=== PATIENT | female | born 1930 | race Caucasian/White ===

== ENCOUNTER 2017-08-29 19:49 | Inpatient (IN) | payer MEDICARE, MEDICAID ==
[~2017-08-29] VITALS: Ht 144.8 cm; Wt 56.0 kg
[~2017-08-29 19:49] MED LIST: ASPI-611 PO; FERR325T32 PO; LISI40TA4 PO; METO-395 PO; etomidate 2mg/ml inj. ONE
[2017-08-29 20:16] LABS: ISTAT CREATININE 0.9 mg/dL (0.6-1.1); ISTAT HGB 12.9 g/dl (12.0-16.0); ISTAT IONIZED CALCIUM 1.1 mmol/L (1.03-1.32); ISTAT K 3.4 mmol/L (3.5-5.1); POC BUN/CREATININE RATIO 17.8 (6.6-38.0)
[2017-08-29 20:17] LABS: BASOPHILS # (AUTO) 0.1 X10'3 (0-0.2); BASOPHILS % (AUTO) 0.8 % (0-1); EOSINOPHILS # (AUTO) 0.3 X10'3 (0-0.9); EOSINOPHILS % (AUTO) 2.1 % (0-6); HEMATOCRIT 37.6 % (35.0-45.0); HEMOGLOBIN 12.3 g/dl (12.0-16.0); LYMPHOCYTES # (AUTO) 5.8 X10'3 (1.1-4.8); LYMPHOCYTES % (AUTO) 35.6 % (21-51); MEAN CORPUSCULAR HEMOGLOBIN 26.6 PG (27.0-31.0); MEAN CORPUSCULAR HGB CONC 32.7 % (33.0-36.5); MEAN CORPUSCULAR VOLUME 81.5 FL (78-98); MEAN PLATELET VOLUME 8.5 FL (7.4-10.4); MONOCYTES # (AUTO) 0.7 X10'3 (0-0.9); MONOCYTES % (AUTO) 4.1 % (2-12); NEUTROPHILS # (AUTO) 9.4 X10'3 (1.8-7.7); NEUTROPHILS % (AUTO) 57.4 % (42-75); PLATELET COUNT 472 X10'3 (140-440); RED BLOOD COUNT 4.62 X10'6 (4.20-5.60); RED CELL DISTRIBUTION WIDTH 24.4 % (11.5-14.5); WHITE BLOOD COUNT 16.3 X10'3 (4.5-11.0)
[2017-08-29] MEDS ORDERED: propofol 1000mg/100ml bottle 100 ML IV PRN (20:18)
[2017-08-29] MEDS ORDERED: propofol 1000mg/100ml bottle 100 ML IV ONE (20:20)
[2017-08-29] MEDS ORDERED: etomidate 2mg/ml inj. IV ONE (20:20)
[2017-08-29] MEDS ORDERED: succinylcholine 20mg/ml inj IV ONE (20:20)
[2017-08-29] MEDS ORDERED: furosemide 40mg/4ml inj IV ONE (20:30)
[2017-08-29] MEDS ORDERED: nitroGLYCERIN-Tridil 50MG/D5W 250 ML IV PRN (20:30)
[2017-08-29 20:31] LABS: ALANINE AMINOTRANSFERASE 16 U/L (12-78); ALBUMIN 2.5 G/DL (3.4-5.0); ALBUMIN/GLOBULIN RATIO 0.7 (1.1-1.5); ALKALINE PHOSPHATASE 76 IU/L (46-116); ANION GAP 12 (8-16); ASPARTATE AMINO TRANSFERASE 22 U/L (10-37); BILIRUBIN,TOTAL 0.3 MG/DL (0.1-1.0); BLOOD UREA NITROGEN 16 MG/DL (7-18); BUN/CREATININE RATIO 14.3 (6.6-38.0); CALCIUM 8.4 MG/DL (8.5-10.1); CHLORIDE 102 MMOL/L (99-107); CREATININE 1.12 MG/DL (0.40-0.90); GLUCOSE 340 MG/DL (70-104); POTASSIUM 3.5 MMOL/L (3.5-5.1); SODIUM 141 MMOL/L (135-145); TOTAL CARBON DIOXIDE 26.9 MMOL/L (24-32); TOTAL PROTEIN 6.3 G/DL (6.4-8.2); eGFR 46 ML/MIN
[2017-08-29 20:39] LABS: PHOSPHORUS 4.2 MG/DL (2.3-4.5)
[2017-08-29 20:51] LABS: ABG BASE EXCESS 4.1 mmol/L (-2.0-3.0); ABG HCO3 28.4 mmol/L (22.0-26.0); ABG OXYGEN SATURATION 88.9 % (95-98); ABG PH (T) 7.466 (7.350-7.450); ABG PO2 (T) 56.5 mmHg (83-108); FCOHb 0.5 % (0.5-1.5); FMetHb 0.1 % (0.3-1.12); FO2Hb 88.4 % (94-100); MINUTE VOLUME 6 L/min; PATIENT TEMPERATURE 36.2; PEEP 5 cm H2O; RESPIRATORY RATE 16 b/min; RESPIRATORY RATE (OBSERVED) 16 b/min; TIDAL VOLUME 350 mL; TOTAL HEMOGLOBIN 11.3 G/dl (12.0-16.0)
[2017-08-29 21:30] LABS: D-DIMER 15.57 MG/L FEU (0-0.50); PARTIAL THROMBOPLASTIN TIME 22 SECONDS (22-32); PROTHROMBIN TIME 10.7 SECONDS (9.0-12.0)
[2017-08-29] MEDS ORDERED: magnesium 2GM in 50ml NS 50 ML IV PRN (21:40)
[2017-08-29] MEDS ORDERED: acetaminophen 650mg rectal suppository RC PRN (21:40)
[2017-08-29] MEDS ORDERED: ondansetron/PF 4mg/2ml inj IV PRN (21:40)
[2017-08-29] MEDS ORDERED: potassium Cl 40MEQ/250ML bag 250 ML IV PRN (21:40)
[2017-08-29] MEDS ORDERED: magnesium 4gm in 100ml NS 100 ML IV PRN (21:40)
[2017-08-29] MEDS ORDERED: vancomycin/NS 1 GM ADD-VANTAGE 250 ML X 1 DOSE IV ONE (22:10)
[2017-08-29] MEDS ORDERED: heparin 10,000 units/1 ML INJ IV ONE (22:10)
[2017-08-29 22:35] VITALS: BP 155/86
[2017-08-29 23:00] VITALS: BP 151/76
[2017-08-29] MEDS: midazolam 100mg in NS 100ml 100 ML IV PRN (23:02)
[2017-08-29] MEDS: FENTANYL-0.9 % NACL/PF 100 ML IV PRN (23:05)
[2017-08-29 23:30] VITALS: BP 67/42
[2017-08-29] MEDS ORDERED: NORepinephrine 8mg/ 250ml NS 250 ML IV PRN (23:39)
[2017-08-29] MEDS ORDERED: NORepinephrine 8mg/ 250ml NS 250 ML IV ONE (23:41)
[2017-08-29 23:45] VITALS: BP 75/44
[2017-08-30] VITALS (23 sets, daily range): BP systolic 88–165; BP diastolic 46–84
[2017-08-30] MEDS ORDERED: insulin Lispro (HumaLOG) vial - multi-dose SQ SCH (00:30)
[2017-08-30] MEDS ORDERED: glucagon, human recombinant 1mg kit SUBCUT PRN (00:30)
[2017-08-30] MEDS ORDERED: dextrose 50%-water 50ml dispensing syringe IV PRN ×2 (00:30)
[2017-08-30] MEDS ORDERED: dextrose ORAL solution 15 GM/59 ML bottle PO PRN ×2 (00:30)
[2017-08-30] MEDS ORDERED: MESSAGE TO PHARMACY PO ONE (00:30)
[2017-08-30 03:01] LABS: ABG BASE EXCESS 7.1 mmol/L (-2.0-3.0); ABG HCO3 29.4 mmol/L (22.0-26.0); ABG OXYGEN SATURATION 96.4 % (95-98); ABG PCO2 (T) 33.3 mmHg (32.0-45.0); ABG PH (T) 7.564 (7.350-7.450); ABG PO2 (T) 79.5 mmHg (83-108); FCOHb 0.3 % (0.5-1.5); FMetHb 0.1 % (0.3-1.12); MINUTE VOLUME 6 L/min; PATIENT TEMPERATURE 36.7; PEEP 5 cm H2O; RESPIRATORY RATE 16 b/min; RESPIRATORY RATE (OBSERVED) 16 b/min; TIDAL VOLUME 350 mL; TOTAL HEMOGLOBIN 11.1 G/dl (12.0-16.0)
[2017-08-30 03:24] LABS: BASOPHILS # (AUTO) 0.1 X10'3 (0-0.2); BASOPHILS % (AUTO) 0.6 % (0-1); EOSINOPHILS # (AUTO) 0.1 X10'3 (0-0.9); EOSINOPHILS % (AUTO) 0.5 % (0-6); HEMATOCRIT 31.8 % (35.0-45.0); HEMOGLOBIN 10.5 g/dl (12.0-16.0); LYMPHOCYTES # (AUTO) 2.9 X10'3 (1.1-4.8); LYMPHOCYTES % (AUTO) 23.3 % (21-51); MEAN CORPUSCULAR HEMOGLOBIN 26.7 PG (27.0-31.0); MEAN CORPUSCULAR HGB CONC 33.1 % (33.0-36.5); MEAN CORPUSCULAR VOLUME 80.8 FL (78-98); MEAN PLATELET VOLUME 8.2 FL (7.4-10.4); MONOCYTES # (AUTO) 0.7 X10'3 (0-0.9); MONOCYTES % (AUTO) 5.4 % (2-12); NEUTROPHILS # (AUTO) 8.8 X10'3 (1.8-7.7); NEUTROPHILS % (AUTO) 70.2 % (42-75); PLATELET COUNT 348 X10'3 (140-440); RED BLOOD COUNT 3.93 X10'6 (4.20-5.60); RED CELL DISTRIBUTION WIDTH 23.6 % (11.5-14.5); WHITE BLOOD COUNT 12.6 X10'3 (4.5-11.0)
[2017-08-30 03:43] LABS: ALANINE AMINOTRANSFERASE 9 U/L (12-78); ALBUMIN/GLOBULIN RATIO 0.6 (1.1-1.5); ALKALINE PHOSPHATASE 63 IU/L (46-116); ANION GAP 8 (8-16); ASPARTATE AMINO TRANSFERASE 14 U/L (10-37); BILIRUBIN,TOTAL 0.3 MG/DL (0.1-1.0); BLOOD UREA NITROGEN 17 MG/DL (7-18); BUN/CREATININE RATIO 15.5 (6.6-38.0); CALCIUM 7.9 MG/DL (8.5-10.1); CHLORIDE 104 MMOL/L (99-107); GLUCOSE 273 MG/DL (70-104); MAGNESIUM 1.9 MG/DL (1.5-2.4); PHOSPHORUS 3.4 MG/DL (2.3-4.5); POTASSIUM 3.2 MMOL/L (3.5-5.1); SODIUM 143 MMOL/L (135-145); TOTAL PROTEIN 5.2 G/DL (6.4-8.2); eGFR 47 ML/MIN
[2017-08-30] MEDS ORDERED: DOPamine 400mg/D5W 250ml 250 ML IV SCH (04:30)
[2017-08-30] MEDS ORDERED: DOPamine 400mg/D5W 250ml 250 ML IV ONE (04:36)
[2017-08-30] MEDS ORDERED: potassium Cl 40MEQ/250ML bag 250 ML IV ONE (04:51)
[2017-08-30] MEDS: potassium Cl 40MEQ/250ML bag 250 ML IV PRN (05:13)
[2017-08-30] MEDS: pantoprazole 40 MG vial IV SCH (07:42)
[2017-08-30] MEDS: levoFLOXACIN-Levaquin 250mg/D5 50 ML IV SCH (07:42)
[2017-08-30] MEDS: normal saline 1000ml 1,000 ML IV SCH ×2 (07:50→12:50)
[2017-08-30] MEDS ORDERED: heparin, porcine 5000 units/ml vial SQ SCH (08:00)
[2017-08-30] MEDS ORDERED: AMIO200T57 PO (10:49)
[2017-08-30] MEDS ORDERED: CLON0.1T PO (10:50)
[2017-08-30] MEDS ORDERED: DOCU100C41 PO (10:51)
[2017-08-30] MEDS ORDERED: LACT1CAP65 PO (10:52)
[2017-08-30] MEDS ORDERED: SYN0.088T PO (10:53)
[2017-08-30 11:22] LABS: POTASSIUM 3.5 MMOL/L (3.5-5.1)
[2017-08-30] MEDS ORDERED: iohexol 350MG/ML 100ml bottle IV ONE (11:30)
[2017-08-30] MEDS ORDERED: LEVO75TA7 PO (16:53)
[2017-08-30] MEDS ORDERED: METO25TA6 PO (16:53)
[2017-08-30] MEDS: FENTANYL-0.9 % NACL/PF 100 ML IV PRN (17:16)
[2017-08-30] MEDS: midazolam 100mg in NS 100ml 100 ML IV PRN (17:28)
[2017-08-30] MEDS ORDERED: lactobacillus rhamnosus 10,000 MMU CELLS/CAPSULE PO SCH (20:00)
[2017-08-30] MEDS: lactobacillus rhamnosus 10,000 MMU CELLS/CAPSULE PO SCH (20:14)
[2017-08-30] MEDS: insulin regular, human vial - multi-dose SQ SCH (20:30)
[2017-08-30] MEDS: insulin glargine (Lantus) pen - multi-dose SQ SCH (21:48)
[2017-08-30] MEDS ORDERED: vancomycin/NS 1 GM ADD-VANTAGE 250 ML X 1 DOSE IV SCH (23:00)
[2017-08-31] VITALS (31 sets, daily range): BP systolic 93–176; BP diastolic 45–87
[2017-08-31] MEDS: mineral oil/petrolatum ophthal oint EACHEYE SCH ×4 (01:41→20:00)
[2017-08-31] MEDS: insulin regular, human vial - multi-dose SQ SCH ×2 (02:21→20:53)
[2017-08-31] MEDS ORDERED: furosemide 40mg/4ml inj IV ONE ×2 (02:30→09:20)
[2017-08-31 03:36] LABS: ABG BASE EXCESS 6.3 mmol/L (-2.0-3.0); ABG OXYGEN SATURATION 87.7 % (95-98); ABG PCO2 (T) 45.6 mmHg (32.0-45.0); ABG PH (T) 7.451 (7.350-7.450); ABG PO2 (T) 55.3 mmHg (83-108); ALLEN'S TEST Positive; FMetHb 0.3 % (0.3-1.12); FO2Hb 87.4 % (94-100); MINUTE VOLUME 4 L/min; PATIENT TEMPERATURE 37.2; PEEP 5 cm H2O; RESPIRATORY RATE 12 b/min; RESPIRATORY RATE (OBSERVED) 12 b/min; TIDAL VOLUME 350 mL; TOTAL HEMOGLOBIN 10.2 G/dl (12.0-16.0)
[2017-08-31 05:37] LABS: BASOPHILS % (AUTO) 0.5 % (0-1); EOSINOPHILS # (AUTO) 0.2 X10'3 (0-0.9); EOSINOPHILS % (AUTO) 2.1 % (0-6); HEMOGLOBIN 11.3 g/dl (12.0-16.0); LYMPHOCYTES # (AUTO) 2.9 X10'3 (1.1-4.8); LYMPHOCYTES % (AUTO) 31.4 % (21-51); MEAN CORPUSCULAR HEMOGLOBIN 26.1 PG (27.0-31.0); MEAN CORPUSCULAR HGB CONC 32.2 % (33.0-36.5); MEAN CORPUSCULAR VOLUME 81.3 FL (78-98); MEAN PLATELET VOLUME 9.7 FL (7.4-10.4); MONOCYTES # (AUTO) 0.5 X10'3 (0-0.9); MONOCYTES % (AUTO) 5.6 % (2-12); NEUTROPHILS # (AUTO) 5.6 X10'3 (1.8-7.7); NEUTROPHILS % (AUTO) 60.4 % (42-75); PLATELET COUNT 315 X10'3 (140-440); RED CELL DISTRIBUTION WIDTH 23.5 % (11.5-14.5); WHITE BLOOD COUNT 9.3 X10'3 (4.5-11.0)
[2017-08-31 06:01] LABS: ALANINE AMINOTRANSFERASE 13 U/L (12-78); ALBUMIN 2.1 G/DL (3.4-5.0); ALBUMIN/GLOBULIN RATIO 0.6 (1.1-1.5); ALKALINE PHOSPHATASE 69 IU/L (46-116); ANION GAP 7 (8-16); ASPARTATE AMINO TRANSFERASE 15 U/L (10-37); BILIRUBIN,TOTAL 0.3 MG/DL (0.1-1.0); BLOOD UREA NITROGEN 18 MG/DL (7-18); BUN/CREATININE RATIO 17.5 (6.6-38.0); CALCIUM 7.8 MG/DL (8.5-10.1); CHLORIDE 103 MMOL/L (99-107); CREATININE 1.03 MG/DL (0.40-0.90); GLUCOSE 113 MG/DL (70-104); MAGNESIUM 1.9 MG/DL (1.5-2.4); PHOSPHORUS 2.7 MG/DL (2.3-4.5); POTASSIUM 3.3 MMOL/L (3.5-5.1); SODIUM 143 MMOL/L (135-145); TOTAL CARBON DIOXIDE 33.5 MMOL/L (24-32); TOTAL PROTEIN 5.7 G/DL (6.4-8.2); eGFR 51 ML/MIN
[2017-08-31] MEDS: potassium Cl 40MEQ/250ML bag 250 ML IV PRN (08:03)
[2017-08-31] MEDS: pantoprazole 40 MG vial IV SCH (08:33)
[2017-08-31] MEDS: levoFLOXACIN-Levaquin 250mg/D5 50 ML IV SCH (08:33)
[2017-08-31] MEDS: lactobacillus rhamnosus 10,000 MMU CELLS/CAPSULE PO SCH ×2 (08:34→20:46)
[2017-08-31] MEDS: levoTHYROXINE 75mcg tablet PO SCH (08:34)
[2017-08-31] MEDS ORDERED: racepinephrine 11.25mg/0.5ml nebule IH ONE (11:55)
[2017-08-31] MEDS: ipratropium/albuterol 3ml nebule NEB PRN ×2 (11:58→14:22)
[2017-08-31] MEDS ORDERED: racepinephrine 11.25mg/0.5ml nebule ONE (11:58)
[2017-08-31 12:06] LABS: MAGNESIUM 1.8 MG/DL (1.5-2.4); POTASSIUM 3.7 MMOL/L (3.5-5.1); TROPONIN I 0.04 NG/ML (0.0-0.05)
[2017-08-31 16:59] LABS: PARTIAL THROMBOPLASTIN TIME 46 SECONDS (22-32)
[2017-08-31] MEDS ORDERED: potassium Cl 40MEQ/NS 500ml 500 ML IV PRN ×2 (17:15)
[2017-08-31] MEDS: furosemide 40mg/4ml inj IV SCH (20:45)
[2017-08-31] MEDS: insulin glargine (Lantus) pen - multi-dose SQ SCH (20:54)
[2017-08-31] MEDS ORDERED: warfarin 7.5mg tablet PO ONE (21:00)
[2017-08-31 23:06] LABS: PARTIAL THROMBOPLASTIN TIME 58 SECONDS (22-32)
[2017-09-01] VITALS (18 sets, daily range): BP systolic 139–197; BP diastolic 58–94
[2017-09-01] MEDS: mineral oil/petrolatum ophthal oint EACHEYE SCH (02:00)
[2017-09-01] MEDS: insulin regular, human vial - multi-dose SQ SCH ×3 (03:26→19:16)
[2017-09-01] MEDS ORDERED: digoxin 250mcg/ml 2ml ampule IV ONE ×3 (04:15→16:00)
[2017-09-01 08:02] LABS: BASOPHILS % (AUTO) 0.4 % (0-1); EOSINOPHILS # (AUTO) 0.1 X10'3 (0-0.9); HEMATOCRIT 32.1 % (35.0-45.0); HEMOGLOBIN 10.4 g/dl (12.0-16.0); LYMPHOCYTES # (AUTO) 1.7 X10'3 (1.1-4.8); LYMPHOCYTES % (AUTO) 24.2 % (21-51); MEAN CORPUSCULAR HEMOGLOBIN 26.1 PG (27.0-31.0); MEAN CORPUSCULAR HGB CONC 32.3 % (33.0-36.5); MEAN PLATELET VOLUME 8.7 FL (7.4-10.4); MONOCYTES # (AUTO) 0.5 X10'3 (0-0.9); MONOCYTES % (AUTO) 7.9 % (2-12); NEUTROPHILS # (AUTO) 4.6 X10'3 (1.8-7.7); NEUTROPHILS % (AUTO) 65.5 % (42-75); PLATELET COUNT 295 X10'3 (140-440); RED BLOOD COUNT 3.96 X10'6 (4.20-5.60); WHITE BLOOD COUNT 6.9 X10'3 (4.5-11.0)
[2017-09-01 08:16] LABS: PROTHROMBIN TIME 10.7 SECONDS (9.0-12.0)
[2017-09-01] MEDS: pantoprazole 40 MG vial IV SCH (08:16)
[2017-09-01] MEDS: levoTHYROXINE 75mcg tablet PO SCH (08:16)
[2017-09-01] MEDS: levoFLOXACIN-Levaquin 250mg/D5 50 ML IV SCH (08:16)
[2017-09-01] MEDS: furosemide 40mg/4ml inj IV SCH ×2 (08:16→19:16)
[2017-09-01] MEDS: lactobacillus rhamnosus 10,000 MMU CELLS/CAPSULE PO SCH ×2 (08:16→19:16)
[2017-09-01 08:24] LABS: ALANINE AMINOTRANSFERASE 11 U/L (12-78); ALBUMIN 1.9 G/DL (3.4-5.0); ALBUMIN/GLOBULIN RATIO 0.5 (1.1-1.5); ALKALINE PHOSPHATASE 64 IU/L (46-116); ANION GAP 5 (8-16); ASPARTATE AMINO TRANSFERASE 11 U/L (10-37); BILIRUBIN,TOTAL 0.3 MG/DL (0.1-1.0); BLOOD UREA NITROGEN 22 MG/DL (7-18); BUN/CREATININE RATIO 22.4 (6.6-38.0); CALCIUM 7.7 MG/DL (8.5-10.1); CHLORIDE 104 MMOL/L (99-107); CREATININE 0.98 MG/DL (0.40-0.90); GLUCOSE 135 MG/DL (70-104); MAGNESIUM 1.8 MG/DL (1.5-2.4); POTASSIUM 3.8 MMOL/L (3.5-5.1); SODIUM 143 MMOL/L (135-145); TOTAL CARBON DIOXIDE 33.7 MMOL/L (24-32); TOTAL PROTEIN 5.4 G/DL (6.4-8.2); eGFR 54 ML/MIN
[2017-09-01] MEDS: metoprolol tartrate 25mg tablet PO SCH ×2 (15:18→19:17)
[2017-09-01] MEDS: cloNIDine 0.1 mg tablet PO SCH ×2 (15:19→19:16)
[2017-09-01] MEDS: heparin 10,000 units/1 ML INJ IV PRN (17:16)
[2017-09-01] MEDS: insulin glargine (Lantus) pen - multi-dose SQ SCH (20:36)
[2017-09-01] MEDS ORDERED: warfarin 7.5mg tablet PO ONE (21:00)
[2017-09-01] MEDS ORDERED: VANCOMYCIN LEVEL IV ONE (22:30)
[2017-09-02 03:00] VITALS: BP 146/56
[2017-09-02 06:00] VITALS: BP 135/70
[2017-09-02 06:28] LABS: BASOPHILS # (AUTO) 0.1 X10'3 (0-0.2); BASOPHILS % (AUTO) 0.7 % (0-1); EOSINOPHILS # (AUTO) 0.1 X10'3 (0-0.9); EOSINOPHILS % (AUTO) 1.1 % (0-6); HEMOGLOBIN 10.8 g/dl (12.0-16.0); LYMPHOCYTES % (AUTO) 25.9 % (21-51); MEAN CORPUSCULAR HEMOGLOBIN 26.1 PG (27.0-31.0); MEAN CORPUSCULAR HGB CONC 31.9 % (33.0-36.5); MEAN CORPUSCULAR VOLUME 81.9 FL (78-98); MEAN PLATELET VOLUME 9.1 FL (7.4-10.4); MONOCYTES # (AUTO) 0.6 X10'3 (0-0.9); MONOCYTES % (AUTO) 7.7 % (2-12); NEUTROPHILS # (AUTO) 4.9 X10'3 (1.8-7.7); NEUTROPHILS % (AUTO) 64.6 % (42-75); PLATELET COUNT 336 X10'3 (140-440); RED BLOOD COUNT 4.15 X10'6 (4.20-5.60); RED CELL DISTRIBUTION WIDTH 21.7 % (11.5-14.5); WHITE BLOOD COUNT 7.7 X10'3 (4.5-11.0)
[2017-09-02 06:41] LABS: INR 1.1 INR; PROTHROMBIN TIME 11.5 SECONDS (9.0-12.0)
[2017-09-02 06:55] LABS: ALANINE AMINOTRANSFERASE 11 U/L (12-78); ALBUMIN 2.1 G/DL (3.4-5.0); ALBUMIN/GLOBULIN RATIO 0.6 (1.1-1.5); ALKALINE PHOSPHATASE 64 IU/L (46-116); ANION GAP 7 (8-16); ASPARTATE AMINO TRANSFERASE 15 U/L (10-37); BILIRUBIN,TOTAL 0.3 MG/DL (0.1-1.0); BLOOD UREA NITROGEN 24 MG/DL (7-18); BUN/CREATININE RATIO 20.7 (6.6-38.0); CALCIUM 8.7 MG/DL (8.5-10.1); CHLORIDE 102 MMOL/L (99-107); CREATININE 1.16 MG/DL (0.40-0.90); GLUCOSE 125 MG/DL (70-104); MAGNESIUM 1.8 MG/DL (1.5-2.4); PHOSPHORUS 3.4 MG/DL (2.3-4.5); POTASSIUM 3.1 MMOL/L (3.5-5.1); SODIUM 144 MMOL/L (135-145); TOTAL CARBON DIOXIDE 35.1 MMOL/L (24-32); TOTAL PROTEIN 5.7 G/DL (6.4-8.2); eGFR 44 ML/MIN
[2017-09-02] MEDS: heparin 10,000 units/1 ML INJ IV PRN (07:07)
[2017-09-02] MEDS ORDERED: pantoprazole 40mg Tablet.DR PO SCH (07:30)
[2017-09-02] MEDS: insulin regular, human vial - multi-dose SQ SCH ×2 (08:21→13:06)
[2017-09-02] MEDS: lactobacillus rhamnosus 10,000 MMU CELLS/CAPSULE PO SCH (08:22)
[2017-09-02] MEDS: cloNIDine 0.1 mg tablet PO SCH (08:22)
[2017-09-02] MEDS: metoprolol tartrate 25mg tablet PO SCH (08:22)
[2017-09-02] MEDS: furosemide 40mg/4ml inj IV SCH (08:23)
[2017-09-02] MEDS: levoTHYROXINE 75mcg tablet PO SCH (08:23)
[2017-09-02 11:00] VITALS: BP 107/58
[2017-09-02] MEDS ORDERED: levoFLOXACIN 250mg tablet PO SCH (11:00)
[2017-09-02 15:00] VITALS: BP 125/75
[2017-09-02] MEDS ORDERED: warfarin 7.5mg tablet PO ONE (21:00)
== END 2017-09-02 17:10 | DRG 208 ==
LOC: ER 19:49 → ED HOLD 21:37 → ICU 2S 22:35 → CICU 2S 09-01 05:45 → PCU 3S 09-01 13:45
PROVIDERS: ADMIT Internal Medicine Critical Care Medicine; ATTEND Internal Medicine Critical Care Medicine
PROC: 5A1945Z Respiratory Ventilation, 24-96 Consecutive Hours (ICD-10-PCS; principal; 2017-08-29)
PROC: 0BH17EZ Insertion of Endotracheal Airway into Trachea, Via Natural or Artificial Opening (ICD-10-PCS; 2017-08-29)
PROC: 0D9670Z Drainage of Stomach with Drainage Device, Via Natural or Artificial Opening (ICD-10-PCS; 2017-08-29)
PROC: BW241ZZ Computerized Tomography (CT Scan) of Chest and Abdomen using Low Osmolar Contrast (ICD-10-PCS; 2017-08-30)
DX: J96.00 Acute respiratory failure, unspecified whether with hypoxia or hypercapnia (principal); I21.4 Non-ST elevation (NSTEMI) myocardial infarction; R65.11 Systemic inflammatory response syndrome (SIRS) of non-infectious origin with acute organ dysfunction; J18.9 Pneumonia, unspecified organism; J81.0 Acute pulmonary edema; N17.9 Acute kidney failure, unspecified; I82.442 Acute embolism and thrombosis of left tibial vein; J90 Pleural effusion, not elsewhere classified; E03.9 Hypothyroidism, unspecified; I95.9 Hypotension, unspecified; Y95 Nosocomial condition; E11.9 Type 2 diabetes mellitus without complications; F03.90 Unspecified dementia, unspecified severity, without behavioral disturbance, psychotic disturbance, mood disturbance, and anxiety; I10 Essential (primary) hypertension; Z88.0 Allergy status to penicillin; Z79.899 Other long term (current) drug therapy; Z79.82 Long term (current) use of aspirin; Z85.51 Personal history of malignant neoplasm of bladder; Z87.11 Personal history of peptic ulcer disease
CPT/HCPCS: 36415; 36600; 71045; 71275; 80047; 80053; 82330; 82803; 82948; 83605; 83735; 83880; 84100; 84132; 84134; 84145; 84439; 84443; 84484; 85018; 85025; 85379; 85610; 85730; 87040; 87070; 92616; 93005; 93306; 93970; 94002; 94003; 94640; 94668; 94760; 96365; 96375; 97116; 97161; 97530; 99291; A6213; A6449; C1758; C9113; J1265; J1644; J1815; J1940; J1956; J2250; J2704; J3370; J3480; J3490; J7030; Q9967

== ENCOUNTER 2017-09-16 16:41 | Emergency (ER) | payer MEDICARE, MEDICAID ==
[~2017-09-16] VITALS: Ht 170.2 cm; Wt 67.0 kg
[~2017-09-16 16:41] MED LIST changes: +AMIO200T57 PO; -ASPI-611 PO; +CLON0.1T PO; +DOCU100C41 PO; -FERR325T32 PO; +LACT1CAP65 PO; +LEVO75TA7 PO; -LISI40TA4 PO; -METO-395 PO; +METO25TA6 PO; -etomidate 2mg/ml inj. ONE
[2017-09-16 17:32] LABS: CLARITY,URINE SLIGHTLY CLOUDY (Clear); GLUCOSE, URINE NEGATIVE (Neg); KETONES,URINE NEGATIVE (Neg); LEUKOCYTE ESTERASE ,URINE TRACE (Neg); NITRITES, URINE NEGATIVE (Neg); OCCULT BLOOD,URINE LARGE (Neg); PH,URINE 6.5 (4.8-8.0); PROTEIN,URINE 30 mg/dl (Neg); UROBILINOGEN,URINE 0.2 E.U/dL (0.2-1.0)
[2017-09-16 17:33] LABS: COLOR,URINE PINK (Yellow); UA COLLECTION TYPE STRAIGHT CATH
[2017-09-16 17:41] LABS: RBC,URINE TNTC /HPF (0-2); SQUAMOUS EPITHELIAL CELL,UR FEW /LPF (FEW)
[2017-09-16 17:42] LABS: BACTERIA,URINE FEW /HPF (Neg); WBC,URINE 0-4 /HPF (0-4)
[2017-09-16 18:06] LABS: BASOPHILS # (AUTO) 0.1 X10'3 (0-0.2); BASOPHILS % (AUTO) 0.9 % (0-1); EOSINOPHILS # (AUTO) 0.1 X10'3 (0-0.9); EOSINOPHILS % (AUTO) 1.6 % (0-6); HEMOGLOBIN 11.6 g/dl (12.0-16.0); LYMPHOCYTES % (AUTO) 28.4 % (21-51); MEAN CORPUSCULAR HEMOGLOBIN 26.6 PG (27.0-31.0); MEAN CORPUSCULAR HGB CONC 33.1 % (33.0-36.5); MEAN CORPUSCULAR VOLUME 80.4 FL (78-98); MONOCYTES # (AUTO) 0.6 X10'3 (0-0.9); NEUTROPHILS # (AUTO) 4.3 X10'3 (1.8-7.7); NEUTROPHILS % (AUTO) 61.1 % (42-75); PLATELET COUNT 296 X10'3 (140-440); RED BLOOD COUNT 4.35 X10'6 (4.20-5.60); RED CELL DISTRIBUTION WIDTH 20.7 % (11.5-14.5)
[2017-09-16 18:18] LABS: INR 0.9 INR; PROTHROMBIN TIME 9.8 SECONDS (9.0-12.0)
[2017-09-16 18:21] LABS: ALANINE AMINOTRANSFERASE 24 U/L (12-78); ALBUMIN 2.7 G/DL (3.4-5.0); ALBUMIN/GLOBULIN RATIO 0.7 (1.1-1.5); ALKALINE PHOSPHATASE 79 IU/L (46-116); ANION GAP 6 (8-16); ASPARTATE AMINO TRANSFERASE 18 U/L (10-37); BILIRUBIN,TOTAL 0.2 MG/DL (0.1-1.0); BLOOD UREA NITROGEN 54 MG/DL (7-18); BUN/CREATININE RATIO 38.6 (6.6-38.0); CALCIUM 8.7 MG/DL (8.5-10.1); CHLORIDE 100 MMOL/L (99-107); GLUCOSE 287 MG/DL (70-104); POTASSIUM 3.8 MMOL/L (3.5-5.1); SODIUM 139 MMOL/L (135-145); TOTAL CARBON DIOXIDE 32.8 MMOL/L (24-32); TOTAL PROTEIN 6.6 G/DL (6.4-8.2); eGFR 36 ML/MIN
[2017-09-16 20:45] VITALS: BP 118/71
[2017-09-18] MEDS ORDERED: ALB0.5UD IH (19:51)
[2017-09-18] MEDS ORDERED: FURO40TA4 PO (19:51)
[2017-09-18] MEDS ORDERED: DOCU283E2 (19:51)
[2017-09-18] MEDS ORDERED: ATR0.5NEB NEB (19:51)
[2017-09-18] MEDS ORDERED: PANT-47 PO (19:51)
[2017-09-18] MEDS ORDERED: INSU200I (19:51)
[2017-09-18] MEDS ORDERED: ACET-2119 PO (19:51)
[2017-09-18] MEDS ORDERED: POLY17PO10 PO (19:51)
[2017-09-18] MEDS ORDERED: LANTUS SQ (19:51)
[2017-09-18] MEDS ORDERED: ONDA4SOL2 PO (19:51)
[2017-09-18] MEDS ORDERED: LEVO75TA7 PO (19:51)
[2017-09-18] MEDS ORDERED: INSU100C10 SQ (19:51)
== END 2017-09-17 02:23 | disposition home or self-care (01) ==
LOC: ER 16:43
DX: R31.9 Hematuria, unspecified (principal); Z88.0 Allergy status to penicillin; Z79.4 Long term (current) use of insulin; Z79.899 Other long term (current) drug therapy
CPT/HCPCS: 36415; 80053; 81001; 85025; 85610; 87088; 99284; A4353

== ENCOUNTER 2017-09-18 16:59 | Inpatient (IN) | payer MEDICARE, MEDICAID ==
[~2017-09-18] VITALS: Ht 153 cm; Wt 59.0 kg
[2017-09-18 17:48] LABS: BASOPHILS # (AUTO) 0.1 X10'3 (0-0.2); BASOPHILS % (AUTO) 0.8 % (0-1); EOSINOPHILS # (AUTO) 0.1 X10'3 (0-0.9); EOSINOPHILS % (AUTO) 1.1 % (0-6); HEMOGLOBIN 11.8 g/dl (12.0-16.0); LYMPHOCYTES # (AUTO) 2.8 X10'3 (1.1-4.8); LYMPHOCYTES % (AUTO) 28.7 % (21-51); MEAN CORPUSCULAR HEMOGLOBIN 26.5 PG (27.0-31.0); MEAN CORPUSCULAR HGB CONC 32.9 % (33.0-36.5); MEAN CORPUSCULAR VOLUME 80.5 FL (78-98); MONOCYTES # (AUTO) 0.7 X10'3 (0-0.9); NEUTROPHILS % (AUTO) 62.4 % (42-75); PLATELET COUNT 310 X10'3 (140-440); RED BLOOD COUNT 4.47 X10'6 (4.20-5.60); RED CELL DISTRIBUTION WIDTH 21.1 % (11.5-14.5); WHITE BLOOD COUNT 9.7 X10'3 (4.5-11.0)
[2017-09-18 17:58] LABS: INR 0.9 INR; PARTIAL THROMBOPLASTIN TIME 24 SECONDS (22-32); PROTHROMBIN TIME 9.7 SECONDS (9.0-12.0)
[2017-09-18 18:03] LABS: ALANINE AMINOTRANSFERASE 45 U/L (12-78); ALBUMIN 2.8 G/DL (3.4-5.0); ALBUMIN/GLOBULIN RATIO 0.7 (1.1-1.5); ALKALINE PHOSPHATASE 85 IU/L (46-116); ANION GAP 10 (8-16); ASPARTATE AMINO TRANSFERASE 23 U/L (10-37); BILIRUBIN,TOTAL 0.2 MG/DL (0.1-1.0); BLOOD UREA NITROGEN 54 MG/DL (7-18); BUN/CREATININE RATIO 35.5 (6.6-38.0); CALCIUM 8.6 MG/DL (8.5-10.1); CHLORIDE 99 MMOL/L (99-107); CREATININE 1.52 MG/DL (0.40-0.90); GLUCOSE 168 MG/DL (70-104); POTASSIUM 4.2 MMOL/L (3.5-5.1); SODIUM 138 MMOL/L (135-145); TOTAL CARBON DIOXIDE 29.1 MMOL/L (24-32); TOTAL PROTEIN 6.8 G/DL (6.4-8.2); eGFR 33 ML/MIN
[2017-09-18] MEDS ORDERED: INSU200I (19:51)
[2017-09-18] MEDS ORDERED: ALB0.5UD IH (19:51)
[2017-09-18] MEDS ORDERED: ACET-2119 PO (19:51)
[2017-09-18] MEDS ORDERED: LANTUS SQ (19:51)
[2017-09-18] MEDS ORDERED: DOCU283E2 (19:51)
[2017-09-18] MEDS ORDERED: ATR0.5NEB NEB (19:51)
[2017-09-18] MEDS ORDERED: POLY17PO10 PO (19:51)
[2017-09-18] MEDS ORDERED: PANT-47 PO (19:51)
[2017-09-18] MEDS ORDERED: ONDA4SOL2 PO (19:51)
[2017-09-18] MEDS ORDERED: INSU100C10 SQ (19:51)
[2017-09-18] MEDS ORDERED: FURO40TA4 PO (19:51)
[2017-09-18] MEDS ORDERED: LEVO75TA7 PO (19:51)
[2017-09-18] MEDS ORDERED: ondansetron/PF 4mg/2ml inj IV PRN (20:45)
[2017-09-18] MEDS ORDERED: mag hydrox/Alum hydrox/simeth 30ml oral suspension PO PRN (20:45)
[2017-09-18] MEDS ORDERED: magnesium hydroxide 30ml (MOM) UD suspension PO PRN (20:45)
[2017-09-18] MEDS ORDERED: acetaminophen 325mg tablet PO PRN (20:45)
[2017-09-18] MEDS: insulin glargine (Lantus) pen - multi-dose SQ SCH (21:00)
[2017-09-18 22:50] VITALS: BP 160/75
[2017-09-18] MEDS: normal saline 1000ml 1,000 ML IV SCH (22:50)
[2017-09-19] VITALS: BP 155/73
[2017-09-19] MEDS ORDERED: glucagon, human recombinant 1mg kit SUBCUT PRN (05:10)
[2017-09-19] MEDS ORDERED: dextrose ORAL solution 15 GM/59 ML bottle PO PRN ×2 (05:10)
[2017-09-19] MEDS ORDERED: MESSAGE TO PHARMACY PO ONE (05:10)
[2017-09-19] MEDS ORDERED: insulin Lispro (HumaLOG) vial - multi-dose SQ SCH (05:10)
[2017-09-19] MEDS ORDERED: dextrose 50%-water 50ml dispensing syringe IV PRN ×2 (05:10)
[2017-09-19 05:49] LABS: BASOPHILS # (AUTO) 0.1 X10'3 (0-0.2); BASOPHILS % (AUTO) 0.7 % (0-1); EOSINOPHILS # (AUTO) 0.2 X10'3 (0-0.9); EOSINOPHILS % (AUTO) 2.2 % (0-6); HEMATOCRIT 34.4 % (35.0-45.0); HEMOGLOBIN 11.3 g/dl (12.0-16.0); LYMPHOCYTES # (AUTO) 2.6 X10'3 (1.1-4.8); LYMPHOCYTES % (AUTO) 30.4 % (21-51); MEAN CORPUSCULAR HEMOGLOBIN 26.5 PG (27.0-31.0); MEAN CORPUSCULAR HGB CONC 32.9 % (33.0-36.5); MEAN CORPUSCULAR VOLUME 80.5 FL (78-98); MONOCYTES # (AUTO) 0.5 X10'3 (0-0.9); MONOCYTES % (AUTO) 6.4 % (2-12); NEUTROPHILS # (AUTO) 5.2 X10'3 (1.8-7.7); NEUTROPHILS % (AUTO) 60.3 % (42-75); PLATELET COUNT 291 X10'3 (140-440); RED BLOOD COUNT 4.27 X10'6 (4.20-5.60); RED CELL DISTRIBUTION WIDTH 20.7 % (11.5-14.5); WHITE BLOOD COUNT 8.6 X10'3 (4.5-11.0)
[2017-09-19 06:08] LABS: ALANINE AMINOTRANSFERASE 40 U/L (12-78); ALBUMIN 2.6 G/DL (3.4-5.0); ALBUMIN/GLOBULIN RATIO 0.7 (1.1-1.5); ALKALINE PHOSPHATASE 79 IU/L (46-116); ANION GAP 8 (8-16); ASPARTATE AMINO TRANSFERASE 17 U/L (10-37); BILIRUBIN,TOTAL 0.3 MG/DL (0.1-1.0); CALCIUM 9.2 MG/DL (8.5-10.1); CHLORIDE 102 MMOL/L (99-107); GLUCOSE 158 MG/DL (70-104); POTASSIUM 3.8 MMOL/L (3.5-5.1); SODIUM 140 MMOL/L (135-145); TOTAL CARBON DIOXIDE 29.9 MMOL/L (24-32); TOTAL PROTEIN 6.2 G/DL (6.4-8.2); eGFR 36 ML/MIN
[2017-09-19 06:09] LABS: BLOOD UREA NITROGEN 52 MG/DL (7-18); BUN/CREATININE RATIO 37.1 (6.6-38.0)
[2017-09-19 08:00] VITALS: BP 130/63
[2017-09-19] MEDS: levoTHYROXINE 75mcg tablet PO SCH (08:38)
[2017-09-19] MEDS ORDERED: LIDOcaine 1%/PF 5ML 10 MG/ML VIAL ONE (11:14)
[2017-09-19] MEDS ORDERED: iohexol 300 MG/1 ML 50ml polymer ONE (11:14)
[2017-09-19 12:00] VITALS: BP 142/74
[2017-09-19] MEDS ORDERED: normal saline 1000ml 1,000 ML IV SCH (12:33)
[2017-09-19] MEDS ORDERED: fentaNYL/PF 50MCG/1 ML 2ML syringe IV PRN (12:35)
[2017-09-19] MEDS ORDERED: midazolam 2 mg/2 ml injection IV PRN (12:35)
[2017-09-19] MEDS ORDERED: LIDOcaine 1%/PF 5ML 10 MG/ML VIAL SQ ONE (12:35)
[2017-09-19] MEDS ORDERED: heparin 1,000 UNITS/NS 500ml 500 ML ONE (13:01)
[2017-09-19] MEDS ORDERED: fentaNYL/PF 50MCG/1 ML 2ML syringe ONE (13:01)
[2017-09-19] MEDS: normal saline 1000ml 1,000 ML IV SCH (16:45)
[2017-09-19 20:00] VITALS: BP 143/70
[2017-09-19] MEDS: insulin glargine (Lantus) pen - multi-dose SQ SCH (21:00)
[2017-09-20] VITALS (16 sets, daily range): BP systolic 115–156; BP diastolic 53–81
[2017-09-20 05:48] LABS: BASOPHILS # (AUTO) 0.1 X10'3 (0-0.2); BASOPHILS % (AUTO) 0.9 % (0-1); EOSINOPHILS # (AUTO) 0.2 X10'3 (0-0.9); EOSINOPHILS % (AUTO) 2.3 % (0-6); HEMATOCRIT 32.2 % (35.0-45.0); HEMOGLOBIN 10.4 g/dl (12.0-16.0); LYMPHOCYTES # (AUTO) 1.9 X10'3 (1.1-4.8); LYMPHOCYTES % (AUTO) 29.8 % (21-51); MEAN CORPUSCULAR HEMOGLOBIN 26.2 PG (27.0-31.0); MEAN CORPUSCULAR HGB CONC 32.4 % (33.0-36.5); MEAN CORPUSCULAR VOLUME 80.9 FL (78-98); MEAN PLATELET VOLUME 9.1 FL (7.4-10.4); MONOCYTES # (AUTO) 0.4 X10'3 (0-0.9); PLATELET COUNT 261 X10'3 (140-440); RED BLOOD COUNT 3.98 X10'6 (4.20-5.60); RED CELL DISTRIBUTION WIDTH 20.5 % (11.5-14.5); WHITE BLOOD COUNT 6.5 X10'3 (4.5-11.0)
[2017-09-20] MEDS: normal saline 1000ml 1,000 ML IV SCH (06:00)
[2017-09-20 06:04] LABS: PARTIAL THROMBOPLASTIN TIME 24 SECONDS (22-32)
[2017-09-20 06:14] LABS: ALANINE AMINOTRANSFERASE 30 U/L (12-78); ALBUMIN 2.4 G/DL (3.4-5.0); ALBUMIN/GLOBULIN RATIO 0.7 (1.1-1.5); ALKALINE PHOSPHATASE 73 IU/L (46-116); ANION GAP 6 (8-16); ASPARTATE AMINO TRANSFERASE 14 U/L (10-37); BILIRUBIN,TOTAL 0.3 MG/DL (0.1-1.0); BLOOD UREA NITROGEN 42 MG/DL (7-18); BUN/CREATININE RATIO 34.4 (6.6-38.0); CALCIUM 8.4 MG/DL (8.5-10.1); CHLORIDE 107 MMOL/L (99-107); CREATININE 1.22 MG/DL (0.40-0.90); GLUCOSE 136 MG/DL (70-104); SODIUM 142 MMOL/L (135-145); TOTAL CARBON DIOXIDE 28.9 MMOL/L (24-32); TOTAL PROTEIN 5.9 G/DL (6.4-8.2); eGFR 42 ML/MIN
[2017-09-20] MEDS: levoTHYROXINE 75mcg tablet PO SCH (07:28)
[2017-09-20] MEDS ORDERED: ceFAZolin 1GM/D5W- ADD-VANTAGE 50 ML IV ONE (15:30)
[2017-09-20] MEDS ORDERED: iohexol 300 MG/1 ML 50ml polymer ONE (17:39)
[2017-09-20] MEDS ORDERED: BUPIVAcaine/PF 7.5mg/ml (0.75%) 10ml vial ONE (17:41)
[2017-09-20] MEDS ORDERED: propofol inj 20 ML IV ONE (17:46)
[2017-09-20] MEDS ORDERED: ondansetron/PF 4mg/2ml inj IV PRN (18:30)
[2017-09-20] MEDS ORDERED: morphine 4 MG/ML inj SYRINge IV PRN ×2 (18:30)
[2017-09-20] MEDS ORDERED: ringers solution, lacted 1,000 ML IV SCH (18:30)
[2017-09-20] MEDS ORDERED: proCHLORperazine 10 MG/2 ml inj IV PRN (18:30)
[2017-09-20] MEDS ORDERED: meperidine/PF 25mg/ml syringe IV PRN ×3 (18:30)
[2017-09-20] MEDS: insulin glargine (Lantus) pen - multi-dose SQ SCH (21:00)
[2017-09-21] VITALS (9 sets, daily range): BP systolic 139–175; BP diastolic 70–90
[2017-09-21] MEDS: normal saline 1000ml 1,000 ML IV SCH (01:35)
[2017-09-21 05:57] LABS: BASOPHILS # (AUTO) 0.1 X10'3 (0-0.2); BASOPHILS % (AUTO) 0.7 % (0-1); EOSINOPHILS # (AUTO) 0.1 X10'3 (0-0.9); HEMATOCRIT 29.5 % (35.0-45.0); HEMOGLOBIN 9.8 g/dl (12.0-16.0); LYMPHOCYTES # (AUTO) 1.9 X10'3 (1.1-4.8); LYMPHOCYTES % (AUTO) 27.4 % (21-51); MEAN CORPUSCULAR HEMOGLOBIN 26.4 PG (27.0-31.0); MEAN CORPUSCULAR HGB CONC 33.1 % (33.0-36.5); MEAN CORPUSCULAR VOLUME 79.9 FL (78-98); MEAN PLATELET VOLUME 8.9 FL (7.4-10.4); MONOCYTES # (AUTO) 0.4 X10'3 (0-0.9); NEUTROPHILS # (AUTO) 4.4 X10'3 (1.8-7.7); NEUTROPHILS % (AUTO) 63.9 % (42-75); PLATELET COUNT 249 X10'3 (140-440); RED BLOOD COUNT 3.69 X10'6 (4.20-5.60); RED CELL DISTRIBUTION WIDTH 19.7 % (11.5-14.5); WHITE BLOOD COUNT 6.9 X10'3 (4.5-11.0)
[2017-09-21 06:26] LABS: ALANINE AMINOTRANSFERASE 25 U/L (12-78); ALBUMIN 2.3 G/DL (3.4-5.0); ALBUMIN/GLOBULIN RATIO 0.7 (1.1-1.5); ALKALINE PHOSPHATASE 70 IU/L (46-116); ANION GAP 9 (8-16); ASPARTATE AMINO TRANSFERASE 15 U/L (10-37); BILIRUBIN,TOTAL 0.3 MG/DL (0.1-1.0); BLOOD UREA NITROGEN 21 MG/DL (7-18); BUN/CREATININE RATIO 22.8 (6.6-38.0); CALCIUM 8.6 MG/DL (8.5-10.1); CHLORIDE 110 MMOL/L (99-107); CREATININE 0.92 MG/DL (0.40-0.90); GLUCOSE 106 MG/DL (70-104); POTASSIUM 3.8 MMOL/L (3.5-5.1); SODIUM 143 MMOL/L (135-145); TOTAL CARBON DIOXIDE 23.6 MMOL/L (24-32); TOTAL PROTEIN 5.5 G/DL (6.4-8.2); eGFR 58 ML/MIN
[2017-09-21] MEDS: levoTHYROXINE 75mcg tablet PO SCH (07:51)
[2017-09-21] MEDS ORDERED: sulfamethoxazole/trimethoprim DS (800/160mg) tablet PO SCH (20:00)
[2017-09-21] MEDS: insulin glargine (Lantus) pen - multi-dose SQ SCH (21:11)
[2017-09-22] VITALS: BP 147/58
== END 2017-09-22 02:01 | DRG 669 ==
LOC: ER 17:00 → ED HOLD 20:45 → SUR 3N 22:30 → PACU 09-20 16:33 → SUR 3N 09-20 20:30
PROVIDERS: ADMIT Internal Medicine; ATTEND Family Medicine
PROC: 06H03DZ Insertion of Intraluminal Device into Inferior Vena Cava, Percutaneous Approach (ICD-10-PCS; 2017-09-19)
PROC: B5191ZZ Fluoroscopy of Inferior Vena Cava using Low Osmolar Contrast (ICD-10-PCS; 2017-09-19)
PROC: BT1F1ZZ Fluoroscopy of Left Kidney, Ureter and Bladder using Low Osmolar Contrast (ICD-10-PCS; 2017-09-20)
PROC: 0TBB8ZZ Excision of Bladder, Via Natural or Artificial Opening Endoscopic (ICD-10-PCS; principal; 2017-09-20 17:54)
DX: D49.4 Neoplasm of unspecified behavior of bladder (principal); E44.1 Mild protein-calorie malnutrition; R31.0 Gross hematuria; I12.9 Hypertensive chronic kidney disease with stage 1 through stage 4 chronic kidney disease, or unspecified chronic kidney disease; N18.3 Chronic kidney disease, stage 3 (moderate); F03.90 Unspecified dementia, unspecified severity, without behavioral disturbance, psychotic disturbance, mood disturbance, and anxiety; Z90.5 Acquired absence of kidney; Z88.0 Allergy status to penicillin; Z79.899 Other long term (current) drug therapy; Z79.4 Long term (current) use of insulin; Z86.718 Personal history of other venous thrombosis and embolism; Z68.25 Body mass index [BMI] 25.0-25.9, adult
CPT/HCPCS: 36415; 37191; 71045; 74176; 74420; 76001; 80053; 82948; 83036; 85025; 85610; 85730; 87070; 88305; 93005; 93970; 97110; 97116; 97161; 99285; A4346; A4402; C1758; J0690; J1644; J1815; J2001; J2704; J3010; J3490; J7030; J7120; Q9967

== ENCOUNTER 2021-02-11 15:02 | Emergency (ER) | payer MEDICARE, MEDICAID ==
[~2021-02-11] VITALS: Ht 142.2 cm; Wt 60.9 kg
[~2021-02-11 15:02] MED LIST changes: +ACET-2119 PO; +ALB0.5UD IH; -AMIO200T57 PO; +ATR0.5NEB NEB; -CLON0.1T PO; -DOCU100C41 PO; +DOCU283E2; +FURO40TA4 PO; +INSU100C10 SQ; +INSU200I; -LACT1CAP65 PO; +LANTUS SQ; -METO25TA6 PO; +ONDA4SOL2 PO; +PANT-47 PO; +POLY17PO10 PO
[2021-02-11 16:11] LABS: BASOPHILS % (AUTO) 0.6 % (0-1); EOSINOPHILS % (AUTO) 0.4 % (0-6); HEMATOCRIT 43.8 % (35.0-45.0); HEMOGLOBIN 14.9 g/dl (12.0-16.0); LYMPHOCYTES # (AUTO) 2.2 X10'3 (1.1-4.8); LYMPHOCYTES % (AUTO) 31.6 % (21-51); MEAN CORPUSCULAR HEMOGLOBIN 29.1 PG (27.0-31.0); MEAN CORPUSCULAR HGB CONC 34.1 g/dL (33.0-36.5); MEAN CORPUSCULAR VOLUME 85.4 FL (78-98); MEAN PLATELET VOLUME 7.9 FL (7.4-10.4); MONOCYTES # (AUTO) 0.6 X10'3 (0-0.9); MONOCYTES % (AUTO) 9.3 % (2-12); NEUTROPHILS % (AUTO) 58.1 % (42-75); PLATELET COUNT 200 X10'3 (140-440); RED BLOOD COUNT 5.13 X10'6 (4.20-5.60); RED CELL DISTRIBUTION WIDTH 14.7 % (11.5-14.5); WHITE BLOOD COUNT 6.9 X10'3 (4.5-11.0)
[2021-02-11 16:20] LABS: ALANINE AMINOTRANSFERASE 28 U/L (12-78); ALBUMIN 3.2 G/DL (3.4-5.0); ALBUMIN/GLOBULIN RATIO 0.8 (1.1-1.5); ALKALINE PHOSPHATASE 85 IU/L (46-116); ANION GAP 10 (8-16); ASPARTATE AMINO TRANSFERASE 24 U/L (10-37); BILIRUBIN,TOTAL 0.7 MG/DL (0.1-1.0); BLOOD UREA NITROGEN 24 MG/DL (7-18); CALCIUM 8.8 MG/DL (8.5-10.1); CHLORIDE 101 MMOL/L (99-107); GLUCOSE 186 MG/DL (70-104); POTASSIUM 4.7 MMOL/L (3.5-5.1); SODIUM 135 MMOL/L (135-145); TOTAL CARBON DIOXIDE 23.6 MMOL/L (24-32); TOTAL PROTEIN 7.4 G/DL (6.4-8.2); eGFR 42 ML/MIN
[2021-02-11] MEDS ORDERED: normal saline 1000ml 1,000 ML IV ONE (16:50)
[2021-02-11] MEDS ORDERED: CASIRIVIMAB/IMDEVIMAB inject. 10 ML in normal saline 100ml IV soln 100 ML IV ONE (16:50)
[2021-02-11] MEDS ORDERED: acetaminophen 325mg tablet PO ONE ×2 (16:50→20:25)
[2021-02-11 17:59] LABS: CLARITY,URINE BLOODY (Clear); COLOR,URINE RED (Yellow); UA COLLECTION TYPE CLN CATCH MIDSTREAM
[2021-02-11] MEDS ORDERED: ALBU8HFA PO (18:03)
[2021-02-11] MEDS ORDERED: BENZ-38 PO (18:03)
[2021-02-11 18:04] LABS: BACTERIA,URINE 4+ /HPF (Neg); MUCUS STRANDS MODERATE /LPF (Neg); RBC,URINE TNTC /HPF (0-2); SQUAMOUS EPITHELIAL CELL,UR FEW /LPF (FEW); WBC,URINE 20-30 /HPF (0-4)
--- NOTE | 2021-02-11 18:20 | NUR ---
ATTEMPTED TO START IV X 3 WITHOUT SUCCESS.
[2021-02-11] MEDS ORDERED: nitrofuran/nitrofuran macrocrysal 100 MG capsule PO ONE (19:30)
[2021-02-11] MEDS ORDERED: NITR100C6 PO (19:30)
--- NOTE | 2021-02-11 20:10 | NUR ---
IV COMPLETED BY ANSELMO DOWNING. ULTRASOUND. MEDS AND FLUIDS RUNNING.
[2021-02-11 21:20] VITALS: BP 146/68
== END 2021-02-11 21:22 | disposition home or self-care (01) ==
LOC: ER 15:03
DX: U07.1 COVID-19 (principal); N39.0 Urinary tract infection, site not specified; R53.1 Weakness; R05.9 Cough, unspecified; R53.83 Other fatigue; Z88.0 Allergy status to penicillin; Z79.4 Long term (current) use of insulin; Z79.899 Other long term (current) drug therapy
CPT/HCPCS: 36415; 71045; 80053; 81001; 85025; 87088; 87186; 87635; 96360; 99285; C9803; J7030; M0243; Q0244; 87077

== ENCOUNTER 2021-05-26 17:25 | Inpatient (IN) | payer MEDICARE, MEDICAID ==
[~2021-05-26] VITALS: Ht 142.2 cm; Wt 61.0 kg
[~2021-05-26 17:25] MED LIST changes: +NITR100C6 PO
--- NOTE | 2021-05-26 18:15 | NUR ---
[facility]
[2021-05-26 19:00] VITALS: BP 151/62
--- NOTE | 2021-05-26 19:00 | NUR ---
Patient arrived to the unit via gurney and 2 EMT. Dx: Hematuria, Anemia and Bladder cancer. AAOX1. Denies any pain or discomfort at this time. Able to ambulate to the toilet, standby assist. Cruz cath noted with blood in bag. Last BM on 05/25/21. DM 2, last BG 171. Hard of hearing. Safety measures and comfort maintained. Call light within reach. Will continue to monitor.
--- NOTE | 2021-05-26 19:47 | NUR ---
Dr. Fermin made aware of direct admit from [facility].
[2021-05-26] MEDS ORDERED: mag hydrox/Alum hydrox/simeth 30ml oral suspension PO PRN (20:15)
[2021-05-26] MEDS ORDERED: ondansetron/PF 4mg/2ml inj IV PRN (20:15)
[2021-05-26] MEDS ORDERED: potassium Cl 20 mEq SR tablet PO PRN ×2 (20:15)
[2021-05-26] MEDS ORDERED: potassium CL 10mEq/100ml bag 100 ML IV PRN (20:15)
[2021-05-26] MEDS ORDERED: HYDROcodone/acetaminophen 5mg/325mg tablet PO PRN (20:15)
[2021-05-26] MEDS ORDERED: acetaminophen 325mg tablet PO PRN (20:15)
[2021-05-26] MEDS ORDERED: magnesium 2GM in 50ml NS 50 ML IV PRN (20:15)
[2021-05-26] MEDS ORDERED: magnesium hydroxide 30ml (MOM) UD suspension PO PRN (20:15)
[2021-05-26] MEDS ORDERED: magnesium 4gm in 100ml NS 100 ML IV PRN (20:15)
[2021-05-26] MEDS ORDERED: magnesium Cl slow-release 64mg tablet PO PRN (20:15)
[2021-05-26] MEDS ORDERED: insulin Lispro (HumaLOG) vial - multi-dose SQ SCH (20:20)
[2021-05-26] MEDS ORDERED: glucagon, human recombinant 1mg kit SUBCUT PRN (20:20)
[2021-05-26] MEDS ORDERED: MESSAGE TO PHARMACY PO ONE (20:20)
[2021-05-26] MEDS ORDERED: DEXTROSE 15 GM of carb/4 tabs (each vial/BOTTLE has 4 tablets) PO PRN ×2 (20:20)
[2021-05-26] MEDS ORDERED: dextrose 50%-water 50ml dispensing syringe IV PRN ×2 (20:20)
[2021-05-26] MEDS ORDERED: LISI10TA27 PO (20:40)
[2021-05-26] MEDS ORDERED: SULF-14 PO (20:40)
[2021-05-26] MEDS ORDERED: LEVO50TA8 PO (20:40)
[2021-05-26] MEDS ORDERED: OMEP20CA16 PO (20:40)
[2021-05-26 20:59] LABS: BASOPHILS % (AUTO) 0.6 % (0-1); EOSINOPHILS # (AUTO) 0.2 X10'3 (0-0.9); EOSINOPHILS % (AUTO) 2.3 % (0-6); HEMATOCRIT 22.4 % (35.0-45.0); HEMOGLOBIN 7.2 g/dl (12.0-16.0); LYMPHOCYTES # (AUTO) 2.6 X10'3 (1.1-4.8); LYMPHOCYTES % (AUTO) 32.1 % (21-51); MEAN CORPUSCULAR HEMOGLOBIN 29.2 PG (27.0-31.0); MEAN CORPUSCULAR HGB CONC 32.2 g/dL (33.0-36.5); MEAN CORPUSCULAR VOLUME 90.6 FL (78-98); MEAN PLATELET VOLUME 7.4 FL (7.4-10.4); MONOCYTES # (AUTO) 0.5 X10'3 (0-0.9); MONOCYTES % (AUTO) 6.2 % (2-12); NEUTROPHILS # (AUTO) 4.8 X10'3 (1.8-7.7); NEUTROPHILS % (AUTO) 58.8 % (42-75); PLATELET COUNT 276 X10'3 (140-440); RED BLOOD COUNT 2.47 X10'6 (4.20-5.60); WHITE BLOOD COUNT 8.2 X10'3 (4.5-11.0)
[2021-05-26 21:11] LABS: HEMOGLOBIN A1C 5.6 % (4.5-6.2)
[2021-05-26 21:24] LABS: ALANINE AMINOTRANSFERASE 28 U/L (12-78); ALBUMIN 2.5 G/DL (3.4-5.0); ALKALINE PHOSPHATASE 59 IU/L (46-116); ANION GAP 8 (8-16); ASPARTATE AMINO TRANSFERASE 17 U/L (10-37); BILIRUBIN,TOTAL 0.1 MG/DL (0.1-1.0); BLOOD UREA NITROGEN 22 MG/DL (7-18); BUN/CREATININE RATIO 15.8 (6.6-38.0); CALCIUM 7.8 MG/DL (8.5-10.1); CHLORIDE 110 MMOL/L (99-107); CREATININE 1.39 MG/DL (0.40-0.90); GLUCOSE 187 MG/DL (70-104); POTASSIUM 4.3 MMOL/L (3.5-5.1); SODIUM 141 MMOL/L (135-145); TOTAL CARBON DIOXIDE 22.6 MMOL/L (24-32); eGFR 36 ML/MIN
[2021-05-26 21:39] LABS: TOTAL CELLS COUNTED 100
[2021-05-26 21:40] LABS: PLATELET ESTIMATE NORMAL
[2021-05-26] MEDS: insulin glargine (Lantus) pen - multi-dose SQ SCH (22:17)
[2021-05-26 23:00] VITALS: BP 147/65
[2021-05-27] VITALS (20 sets, daily range): BP systolic 134–165; BP diastolic 60–85
--- NOTE | 2021-05-27 06:39 | NUR ---
Problems reprioritized. Patient report given, questions answered & plan of care reviewed with ANSELMO Arboleda.
--- NOTE | 2021-05-27 07:13 | NUR ---
Diabetes consult: Noted pt w/ hx of DM, A1c 5.6 well controlled. DM ed not indicated at this time. Addendum: 05/27/21 at [address] Amended: Links added.
[2021-05-27 07:21] LABS: BASOPHILS # (AUTO) 0.1 X10'3 (0-0.2); BASOPHILS % (AUTO) 0.6 % (0-1); EOSINOPHILS # (AUTO) 0.2 X10'3 (0-0.9); EOSINOPHILS % (AUTO) 1.8 % (0-6); HEMOGLOBIN 7.2 g/dl (12.0-16.0); LYMPHOCYTES # (AUTO) 2.8 X10'3 (1.1-4.8); MEAN CORPUSCULAR HEMOGLOBIN 29.2 PG (27.0-31.0); MEAN CORPUSCULAR HGB CONC 32.6 g/dL (33.0-36.5); MEAN CORPUSCULAR VOLUME 89.4 FL (78-98); MEAN PLATELET VOLUME 7.9 FL (7.4-10.4); MONOCYTES # (AUTO) 0.6 X10'3 (0-0.9); MONOCYTES % (AUTO) 6.7 % (2-12); NEUTROPHILS % (AUTO) 57.9 % (42-75); PLATELET COUNT 277 X10'3 (140-440); RED BLOOD COUNT 2.46 X10'6 (4.20-5.60); RED CELL DISTRIBUTION WIDTH 16.6 % (11.5-14.5); WHITE BLOOD COUNT 8.6 X10'3 (4.5-11.0)
[2021-05-27 07:33] LABS: ALANINE AMINOTRANSFERASE 23 U/L (12-78); ALBUMIN 2.5 G/DL (3.4-5.0); ALBUMIN/GLOBULIN RATIO 1.1 (1.1-1.5); ALKALINE PHOSPHATASE 54 IU/L (46-116); ANION GAP 9 (8-16); ASPARTATE AMINO TRANSFERASE 16 U/L (10-37); BILIRUBIN,TOTAL 0.2 MG/DL (0.1-1.0); BLOOD UREA NITROGEN 20 MG/DL (7-18); BUN/CREATININE RATIO 17.7 (6.6-38.0); CALCIUM 7.8 MG/DL (8.5-10.1); CHLORIDE 111 MMOL/L (99-107); CREATININE 1.13 MG/DL (0.40-0.90); GLUCOSE 110 MG/DL (70-104); POTASSIUM 4.1 MMOL/L (3.5-5.1); SODIUM 143 MMOL/L (135-145); TOTAL PROTEIN 4.8 G/DL (6.4-8.2); eGFR 45 ML/MIN
[2021-05-27] MEDS: K and/or MAG REPLACEMENT MC SCH ×2 (08:00→20:00)
[2021-05-27 08:19] LABS: ANISOCYTOSIS 1+; LARGE PLATELETS FEW; PLATELET ESTIMATE NORMAL
[2021-05-27] MEDS: docusate sod 100mg capsule PO SCH ×2 (08:36→20:00)
[2021-05-27] MEDS: normal saline 1000ml 1,000 ML IV SCH ×2 (12:11→12:55)
--- NOTE | 2021-05-27 15:10 | NUR ---
patient received 2 unit PRBC .completed and reaction,tolerated it well. vitals remain stable.
[2021-05-27] MEDS ORDERED: LIDOcaine 2% 10ml TOPICAL JELLY (Urojet) ONE (17:03)
[2021-05-27] MEDS ORDERED: sevoflurane 250ml liquid IH ONE (17:55)
[2021-05-27] MEDS ORDERED: FENTANYL CITRATE/PF 50 MCG/1 ML VIAL ONE (18:06)
[2021-05-27] MEDS ORDERED: LIDOcaine 2% (20mg/ml) 5ml vial ONE (18:09)
[2021-05-27] MEDS ORDERED: propofol inj 20 ML IV ONE (18:09)
[2021-05-27] MEDS ORDERED: ceFAZolin 1000mg inj ONE ×2 (18:28)
[2021-05-27] MEDS ORDERED: ePHEDrine 50MG/ML INJ. ONE (18:40)
--- NOTE | 2021-05-27 19:12 | NUR ---
Received from OR via SURGICAL BED, accompanied by Anesthesiologist HUMAIRA and report given by Anesthesiolgist. DR GREY. VSS, SR 80, MIDLINE, 3 WAY CATHETER, MASK 10 LITERS. LR @ 100. Addendum: 05/27/21 at 1928 by Swati Call RN Amended: Links added.
--- NOTE | 2021-05-27 19:54 | NUR ---
Report from OR nurse Swati RN, stating that they removed the tumor and patient is on continues irrigation at this time, and LR infusing at 100 mL/hr.
--- NOTE | 2021-05-27 20:12 | NUR ---
VSS, PATIENT MEETS DISCHARGE CRITERIA, WENT BACK TO FLOOR WITH CONTINUOUS BLADDER IRRIGATION AND TELE BOX Addendum: 05/27/21 at 2014 by Swati Call RN Amended: Links added.
--- NOTE | 2021-05-27 20:15 | NUR ---
Patient arrived to unit from OR via hospital bed resting quietly. Continues irrigation noted with 0.9 Sodium Chloride Isotonic, maguire bag with clear pink drainage noted. LR infusing at 100 mL/hr. Left upper arm midline noted. No acute distress noted. Safety measures and comfort maintained. Will continue to monitor.
[2021-05-27] MEDS: insulin glargine (Lantus) pen - multi-dose SQ SCH (21:00)
[2021-05-28] VITALS: BP 179/80
[2021-05-28 04:00] VITALS: BP 171/78
[2021-05-28 04:30] VITALS: BP 149/80
--- NOTE | 2021-05-28 06:29 | NUR ---
Problems reprioritized. Patient report given, questions answered & plan of care reviewed with ANSELMO Arboleda.
[2021-05-28 06:32] LABS: BASOPHILS # (AUTO) 0.1 X10'3 (0-0.2); BASOPHILS % (AUTO) 0.9 % (0-1); EOSINOPHILS # (AUTO) 0.1 X10'3 (0-0.9); EOSINOPHILS % (AUTO) 1.4 % (0-6); HEMATOCRIT 32.8 % (35.0-45.0); HEMOGLOBIN 10.9 g/dl (12.0-16.0); LYMPHOCYTES # (AUTO) 2.4 X10'3 (1.1-4.8); LYMPHOCYTES % (AUTO) 25.9 % (21-51); MEAN CORPUSCULAR HEMOGLOBIN 28.6 PG (27.0-31.0); MEAN CORPUSCULAR HGB CONC 33.2 g/dL (33.0-36.5); MEAN CORPUSCULAR VOLUME 86.2 FL (78-98); MEAN PLATELET VOLUME 7.4 FL (7.4-10.4); MONOCYTES # (AUTO) 0.6 X10'3 (0-0.9); MONOCYTES % (AUTO) 6.2 % (2-12); NEUTROPHILS % (AUTO) 65.6 % (42-75); PLATELET COUNT 278 X10'3 (140-440); RED BLOOD COUNT 3.81 X10'6 (4.20-5.60); RED CELL DISTRIBUTION WIDTH 17.2 % (11.5-14.5); WHITE BLOOD COUNT 9.2 X10'3 (4.5-11.0)
[2021-05-28] MEDS: normal saline 1000ml 1,000 ML IV SCH (06:34)
[2021-05-28 07:00] VITALS: BP 146/72
[2021-05-28 07:27] LABS: ALANINE AMINOTRANSFERASE 20 U/L (12-78); ALBUMIN 2.3 G/DL (3.4-5.0); ALBUMIN/GLOBULIN RATIO 0.7 (1.1-1.5); ALKALINE PHOSPHATASE 56 IU/L (46-116); ANION GAP 8 (8-16); ASPARTATE AMINO TRANSFERASE 14 U/L (10-37); BILIRUBIN,TOTAL 0.5 MG/DL (0.1-1.0); BLOOD UREA NITROGEN 12 MG/DL (7-18); BUN/CREATININE RATIO 14.3 (6.6-38.0); CALCIUM 8.1 MG/DL (8.5-10.1); CHLORIDE 109 MMOL/L (99-107); CHOL/HDL RATIO 3.6 (0.00-4.99); CHOLESTEROL 166 MG/DL (0-200); CREATININE 0.84 MG/DL (0.40-0.90); GLUCOSE 89 MG/DL (70-104); HDL CHOLESTEROL 46 MG/DL (35-60); MAGNESIUM 1.8 MG/DL (1.5-2.4); POTASSIUM 3.9 MMOL/L (3.5-5.1); SODIUM 141 MMOL/L (135-145); TOTAL CARBON DIOXIDE 23.7 MMOL/L (24-32); TOTAL PROTEIN 5.5 G/DL (6.4-8.2); TRIGLYCERIDES 118 MG/DL (20-135); eGFR 64 ML/MIN
[2021-05-28 07:41] LABS: LDL CHOLESTEROL 99 MG/DL (50-100)
[2021-05-28] MEDS: docusate sod 100mg capsule PO SCH (07:54)
[2021-05-28] MEDS: K and/or MAG REPLACEMENT MC SCH (08:00)
[2021-05-28] MEDS ORDERED: atorvastatin 20mg tablet PO SCH (08:00)
[2021-05-28 11:00] VITALS: BP 155/73
--- NOTE | 2021-05-28 15:49 | NUR ---
PLEASE DONT FORGET TO DO THE DISCHARGE MEDICATION AND FINALIZE THE DISCHARGE FOR PATIENT IN 3622K. MALIHA MARTINEZ. DIRECTOR OF HOTEL OPERATIONS TIME FOR HER IS 1630P
== END 2021-05-28 17:03 | DRG 668 ==
LOC: PCU 3S 19:22 → UNDOADMIN 19:22 → PCU 3S 20:16
PROVIDERS: ADMIT Internal Medicine; ATTEND Internal Medicine
PROC: 0TCB8ZZ Extirpation of Matter from Bladder, Via Natural or Artificial Opening Endoscopic (ICD-10-PCS; 2021-05-27)
PROC: 30233N1 Transfusion of Nonautologous Red Blood Cells into Peripheral Vein, Percutaneous Approach (ICD-10-PCS; 2021-05-27)
PROC: 05HA33Z Insertion of Infusion Device into Left Brachial Vein, Percutaneous Approach (ICD-10-PCS; 2021-05-27)
PROC: 0T9B70Z Drainage of Bladder with Drainage Device, Via Natural or Artificial Opening (ICD-10-PCS; 2021-05-27)
PROC: 0TBB8ZZ Excision of Bladder, Via Natural or Artificial Opening Endoscopic (ICD-10-PCS; principal; 2021-05-27 17:55)
DX: C67.9 Malignant neoplasm of bladder, unspecified (principal); N17.0 Acute kidney failure with tubular necrosis; E66.01 Morbid (severe) obesity due to excess calories; D64.9 Anemia, unspecified; R31.0 Gross hematuria; Z20.822 Contact with and (suspected) exposure to COVID-19; K21.9 Gastro-esophageal reflux disease without esophagitis; E11.22 Type 2 diabetes mellitus with diabetic chronic kidney disease; I12.9 Hypertensive chronic kidney disease with stage 1 through stage 4 chronic kidney disease, or unspecified chronic kidney disease; N18.9 Chronic kidney disease, unspecified; E03.9 Hypothyroidism, unspecified; E78.5 Hyperlipidemia, unspecified; F03.90 Unspecified dementia, unspecified severity, without behavioral disturbance, psychotic disturbance, mood disturbance, and anxiety; Z87.11 Personal history of peptic ulcer disease; Z90.5 Acquired absence of kidney; Z88.0 Allergy status to penicillin; Z79.899 Other long term (current) drug therapy; Z79.4 Long term (current) use of insulin; Z86.718 Personal history of other venous thrombosis and embolism; Z68.30 Body mass index [BMI] 30.0-30.9, adult
CPT/HCPCS: 36410; 36415; 36430; 76942; 80053; 80061; 82948; 83036; 83735; 84443; 85007; 85008; 85025; 86885; 86900; 86901; 86920; 87081; 87635; 88305; 93005; A4338; A4355; A4618; G0378; J0690; J1815; J2704; J3010; J3490; J7030; P9016